=== PATIENT | male | born 1985 | race Caucasian/White ===

== ENCOUNTER 2023-12-16 18:25 | Emergency (ER) | payer OTHER, SELFPAY ==
[2023-12-16 18:28] VITALS: BP 156/91; PULSE 95; RESP 20; TEMP 36.6; O2SAT 100
--- NOTE | 2023-12-16 18:33 | ED.EXTPRO ---
HPI - Extremity Problem General Chief complaint: Extremity Problem,Nontraumatic <AUTUMN Ayala Last Filed: 12/16/23 18:52> Stated complaint: RIGHT leg edema <AUTUMN Ayala Last Filed: 12/16/23 18:52> Time Seen by Provider: 12/16/23 18:30 <AUTUMN Ayala Last Filed: 12/16/23 18:52> Focused HPI: Patient is a 38 y/o male who presents to the ED with c/o R lower extremity swelling. Patient reports having swelling in his R calf over the last 2 weeks. He also reports having area of redness to his right medial mid calf. This has been intermittently tender. Presented today to rule out blood clot. Denies chest pain, shortness of breath, fevers, numbness. GENERAL: Well-appearing, well-nourished, and in no acute distress. HEAD: Normocephalic, atraumatic. CHEST: Clear to auscultation. ?No respiratory distress. HEART: Regular rate and rhythm.? MSK: Mild swelling diffusely throughout R calf. Small irregular area of redness to R mid medial calf. Minimal tenderness. Sensation intact. NEURO: ?Alert and oriented x3. Patient screened in triage and initial orders placed.? ?Additional care and disposition to be based upon?diagnostic testing and treatment. <AUTUMN Ayala Last Filed: 12/16/23 18:52> Source: patient <AUTUMN Ayala Last Filed: 12/16/23 18:52> Mode of arrival: ambulatory <AUTUMN Ayala Last Filed: 12/16/23 18:52> Limitations: no limitations <AUTUMN Ayala Filed: 12/16/23 18:52> Related Data Home medications: Home Medications Medication Instructions Recorded Confirmed dutasteride 0.5 mg capsule mg PO 12/16/23 testosterone cypionate 200 mg/mL mg 12/16/23 intramuscular oil <AUTUMN Ayala Last Filed: 12/16/23 18:52> Allergies/Adverse reactions: Allergies Allergy/AdvReac Type Severity Reaction Status Date / Time No Known Allergies Allergy Verified 12/16/23 19:52 <Ashley Frye PA-C - Last Filed: 12/16/23 18:52> Exam Narrative: EXAMINATION OF ORGAN SYSTEMS/BODY AREAS: Constitutional: Vital signs per nursing GENERAL:[No acute distress, non-toxic appearing.] HEAD: Normal with no signs of head trauma. EYES: EOMI, conjunctiva normal ENT: Hearing grossly intact LUNGS: Nonlabored breathing. HEART: [Regular rate and rhythm] ABD: No distension EXT: Normal range of motion; no significant swelling of RLE compared to LLE; small 3cm area of induration to calf SKIN: small 3cm area of redness/induration to calf with sensation of hard vein without significant tenderness NEURO: [Alert and oriented x 3. No gross focal sensory or strength deficits.] PSYCH: Normal affect <Dede Boudreaux MD - Last Filed: 12/16/23 20:13> Course Vital Signs Vital signs: Vital Signs Temperature 98 F 12/16/23 18:28 Pulse Rate 95 12/16/23 18:28 Respiratory Rate 20 12/16/23 18:28 Blood Pressure 156/91 H 12/16/23 18:28 Pulse Oximetry 100 12/16/23 18:28 Oxygen Delivery Room Air 12/16/23 18:28 Temperature 97.7 F 12/16/23 19:51 Pulse Rate 70 12/16/23 19:51 Respiratory Rate 17 12/16/23 19:51 Blood Pressure 162/99 H 12/16/23 19:51 Pulse Oximetry 100 12/16/23 19:51 Oxygen Delivery Room Air 12/16/23 18:28 <Ashley Frye PA-C - Last Filed: 12/16/23 18:52> Vital Signs Temperature 98 F 12/16/23 18:28 Pulse Rate 95 12/16/23 18:28 Respiratory Rate 20 12/16/23 18:28 Blood Pressure 156/91 H 12/16/23 18:28 Pulse Oximetry 100 12/16/23 18:28 Oxygen Delivery Room Air 12/16/23 18:28 Temperature 97.7 F 12/16/23 19:51 Pulse Rate 70 12/16/23 19:51 Respiratory Rate 17 12/16/23 19:51 Blood Pressure 162/99 H 12/16/23 19:51 Pulse Oximetry 100 12/16/23 19:51 Oxygen Delivery Room Air 12/16/23 18:28 <Dede Boudreaux MD - Last Filed: 12/16/23 20:13> MDM - Extremity (Nontraumatic
[2023-12-16 19:07] LABS: Basophils Percent Auto 0.3 % (0.2-1.2); Eosinophils Percent Auto 0.3 % (0-4.4); Hematocrit 49.4 % (42.0-52.0); Hemoglobin 16.6 g/dL (14.0-18.0); Immature Granulocyte Absolute 0.04 K/mm3 (0.00-0.031); Immature Granulocyte Percent A 0.4 % (0-0.5); Lymphocytes Percent Auto 17.6 % (18.3-44.2); Mean Corpuscular HGB Conc 33.6 g/dl (32-36); Mean Corpuscular Hemoglobin 31.7 pg (26-34); Mean Corpuscular Volume 94.5 fl (80-100); Mean Platelet Volume 10.2 fl (7.4-10.4); Monocytes Absolute Auto 0.9 K/mm3 (0.1-0.6); Monocytes Percent Auto 9.4 % (2.6-8.5); Neutrophils Absolute Auto 6.5 K/mm3 (1.3-6.7); Platelet Count Result 211 k/mm3 (150-375); Red Blood Count 5.23 M/mm3 (4.6-6.20); Red Cell Distribution Width 12.1 % (11.5-14.5); White Blood Count 9.1 K/mm3 (4.5-10.0)
--- NOTE | 2023-12-16 19:14 | PC.NURSE ---
Report received from ROBERT Moeller. Assumed care of patient at this time.
[2023-12-16 19:19] LABS: Anion Gap 11 mmol/L (4-12); Blood Urea Nitrogen 18 mg/dL (9-20); Calcium 9.5 mg/dL (8.4-10.2); Carbon Dioxide 28 mmol/L (22-30); Chloride 99 mmol/L (98-107); Estimated CRCL calculation 82 ml/min; Estimated Glomerular Filt Rate > 60; Glucose 123 mg/dL (65-110); Potassium 3.8 mmol/L (3.4-5.0); Sodium 138 mmol/L (137-145)
[2023-12-16 19:20] LABS: INR 1.1; Prothrombin Time 14.5 Seconds (11.1-14.7)
[2023-12-16 19:21] LABS: Partial Thromboplastin Time 30.6 Seconds (22.3-36.8)
[2023-12-16 19:26] LABS: D Dimer < 0.27 ug/mL (<0.48)
--- NOTE | 2023-12-16 19:44 | PC.NURSE ---
Patient ambulated to the bathroom with a steady unassisted gait and back to his room.
[2023-12-16 19:51] VITALS: BP 162/99; PULSE 70; RESP 17; TEMP 36.5; O2SAT 100
== END 2023-12-16 20:09 | disposition home or self-care (01) ==
PROVIDERS: Physician Assistant; Emergency Provider Emergency Medicine; PCP Physician Assistant
DX: I80.01 Phlebitis and thrombophlebitis of superficial vessels of right lower extremity (principal)
CPT/HCPCS: 36415; 80048; 85025; 85380; 85610; 85730; 99283